=== PATIENT | female | born 1990 | race American Indian/Alaskan Native ===

== ENCOUNTER 2017-05-12 21:35 | Outpatient (CLI) | payer MEDICAID ==
[2017-05-12 22:50] LABS: Bacteria,Urine 1+ /HPF (Negative); Bilirubin,Urine NEG (Negative); Blood,Urine NEG (Negative); Ketones,Urine NEG (Negative); Leukocyte Esterase,Urine NEG (Negative); Mucus,Urine FEW /HPF; Nitrite,Urine NEG (Negative); Protein,Urine <15 mg/dL mg/dL (Negative)
[2017-05-13 02:47] LABS: Granular Casts,Urine 14 /LPF
== END 2017-05-12 23:15 | disposition home or self-care (01) ==
LOC: TRG 21:35
PROVIDERS: ATTEND Obstetrics & Gynecology
DX: O26.892 Other specified pregnancy related conditions, second trimester (principal); R10.9 Unspecified abdominal pain; Z87.891 Personal history of nicotine dependence; Z3A.22 22 weeks gestation of pregnancy
CPT/HCPCS: 81001

== ENCOUNTER 2017-05-21 19:42 | Outpatient (CLI) | payer MEDICAID ==
[2017-05-21] MEDS ORDERED: LACTATED RINGERS 500 ML IV ONE (22:00)
[2017-05-21 22:01] VITALS: BP 104/60
== END 2017-05-21 22:35 | disposition home or self-care (01) ==
LOC: TRG 19:42
PROVIDERS: ATTEND Obstetrics & Gynecology
DX: O26.892 Other specified pregnancy related conditions, second trimester (principal); R10.9 Unspecified abdominal pain; J00 Acute nasopharyngitis [common cold]; Z3A.22 22 weeks gestation of pregnancy